=== PATIENT | male | born 1995 | race Caucasian/White ===

== ENCOUNTER 2017-11-16 13:51 | Inpatient (IN) | payer BC ==
[2017-11-16 15:48] VITALS: BMI 19.3
--- NOTE | 2017-11-16 17:45 | HP ---
COWS - Scale Resting Pulse: 4= ME > 121 Sweatin=Flushed/Facial Moisture Restless Observation: 3= Extraneous Movement Pupil Size: 1= Pupils >than Normal Bone or Joint Aches: 1= Mild Discomfort Runny Nose/ Eye Tearin= Runny Nose/Eyes GI Upset > 30mins: 2= Nausea/Diarrhea Tremor Observation: 2= Slight Tremor Visible Yawning Observation: 0= None Anxiety or Irritability: 2=Irritable/Anxious Goose Flesh Skin: 0=Smooth Skin COWS Score: 19 Admission [facility] Chief Complaint: withdrawal symptoms Allergies/Adverse Reactions: Allergies Allergy/AdvReac Type Severity Reaction Status Date / Time No Known Allergies Allergy Verified 11/16/17 15:42 History of Present Illness: 22 yo male with hx of heroin and oxycodone dependence x 3 years. Denies any past medical history. Denies any prior detox treatment. Denies suicidal / homicidal ideation. Exam Limitations: No Limitations - Ebola screening Have you traveled outside of the country in the last 21 days: No Have you had contact with anyone from an Ebola affected area: No Have you been sick,other than usual withdrawal symptoms: No Do you have a fever: No - Review of Systems Constitutional: Chills, Changes in sleep, Unintentional Wgt. Loss (loss 10 lbs in 2 months) EENT: reports: Nose Congestion, Throat Pain Respiratory: reports: Cough (x 4 days), Shortness of Breath (when snorting heroin gets SOB) Cardiac: reports: No Symptoms Reported GI: reports: Nausea, Poor Appetite, Poor Fluid Intake : reports: No Symptoms Reported (reports no urinary symptoms) Musculoskeletal: reports: Back Pain, Joint Pain Integumentary: reports: No Symptoms Reported Neuro: reports: Tremors Endocrine: reports: No Symptoms Reported Hematology: reports: No Symptoms Reported Psychiatric: reports: Orientated x3, Anxious Other Systems: Reviewed and Negative Patient History - Patient Medical History Hx Anemia: No Hx Asthma: No Hx Chronic Obstructive Pulmonary Disease (COPD): No Hx Cancer: No Hx Cardiac Disorders: No Hx Congestive Heart Failure: No Hx Hypertension: No Hx Hypercholesterolemia: No Hx Pacemaker: No HX Cerebrovascular Accident: No Hx Seizures: No Hx Dementia: No Hx Diabetes: No Hx Gastrointestinal Disorders: No Hx Liver Disease: No Hx Genitourinary Disorders: No Hx Sexually Transmitted Disorders: No Hx Renal Disease (ESRD): No Hx Thyroid Disease: No Hx Human Immunodeficiency Virus (HIV): No (last test two years ago ) Hx Hepatitis C: No Hx Depression: No Hx Suicide Attempt: No Hx Bipolar Disorder: No Hx Schizophrenia: No - Patient Surgical History Past Surgical History: No Hx Neurologic Surgery: No Hx Cataract Extraction: No Hx Cardiac Surgery: No Hx Lung Surgery: No Hx Breast Surgery: No Hx Breast Biopsy: No Hx Abdominal Surgery: No Hx Appendectomy: No Hx Cholecystectomy: No Hx Genitourinary Surgery: No Hx Section: No Hx Orthopedic Surgery: No Anesthesia Reaction: No - PPD History Previous Implant?: Yes Documented Results: Negative w/o proof Implanted On Prior [facility] Admission?: No PPD to be Administered?: Yes - Reproductive History Patient : No - Smoking Cessation Smoking history: Current every day smoker Have you smoked in the past 12 months: Yes Aproximately how many cigarettes per day: 10 Hx Chewing Tobacco Use: No Initiated information on smoking cessation: Yes 'Breaking Loose' booklet given: 11/16/17 - Substance & Tx. History Hx Alcohol Use: Yes (reports recreational use ) Hx Substance Use: Yes Substance Use Type: Heroin, Marijuana, Opiates Hx Substance Use Treatment: No - Substances Abused Heroin Route: Inhalation Frequency: Daily Amount used: 6 bags Age of first use: 19 Date of Last Use: 11/15/17 oxycodone Route: Oral Frequency: 1-2 times per week Amount used: 60mg Age of first use: 19 Date of Last Use: 11/11/17 Marijuana/Hashish Route: Smoking Frequency: 1-2 times per week Amount used: $10 Age of first use: 13 Date of Last Use: 11/12/17 Family Disease History - Family Disease History Family Disease History: Heart Disease: Father (alieve ), Other: Mother (alieve, Diverticulitis ) Admission Physical Exam BHS - Vital Signs Vital Signs: Vital Signs - 24 hr 11/16/17 11/16/17 15:28 15:58 Temperature 97.4 F L 97.4 F L Pulse Rate 135 H 135 H Respiratory 20 20 Rate Blood Pressure 132/81 132/81 - Physical General Appearance: Yes: Appropriately Dressed, Thin, Tremorous, Sweating, Anxious HEENTM: Yes: Hearing grossly Normal, Normal ENT Inspection, Normocephalic, Normal Voice, Pharynx Normal, Nasal Congestion, Other (dry mucous membranes) Respiratory: Yes: Chest Non-Tender, No Respiratory Distress, No Accessory Muscle Use, Wheezing (bilateral lower lobes) Neck: Yes: No masses,lesions,Nodules, Trachea in good position Breast: Yes: Breast Exam Deferred Cardiology: Yes: Regular Rhythm, S1, S2 Abdominal: Yes: Normal Bowel Sounds, Non Tender, Flat, Soft Genitourinary: Yes: Within Normal Limits (reports no urinary symptoms) Back: Yes: Within Normal Limits, Normal Inspection Musculoskeletal: Yes: full range of Motion, Gait Steady, Pelvis Stable Extremities: Yes: Normal Capillary Refill, Normal Inspection, Normal Range of Motion, Tremors 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 - Detox or Rehab [facility] Level of Care: Medically Managed Detox Regimen/Protocol: Methadone [facility] Breath Alcohol Content Breath Alcohol Content: 0 Urine Drug Screen - Results Drug Screen Negative: No Urine Drug Screen Results: PRECIOUS-Cocaine, OPI-Opiates
[2017-11-16] MEDS ORDERED: LOPERAMIDE HCL 2 MG CAPSULE PO PRN (18:04)
[2017-11-16] MEDS ORDERED: MAGNESIUM CITRATE 300 ML BOTTLE PO PRN (18:04)
[2017-11-16] MEDS ORDERED: IBUPROFEN 400 MG TABLET (FP) PO PRN (18:04)
[2017-11-16] MEDS ORDERED: ACETAMINOPHEN 325 MG TABLET (FP) PO PRN (18:04)
[2017-11-16] MEDS ORDERED: MENTHOL/PHENOL 1 EACH UD MM PRN (18:04)
[2017-11-16] MEDS ORDERED: P-EPHED 60MG/TRIPROLIDI 2.5MG TABLET PO PRN (18:04)
[2017-11-16] MEDS ORDERED: MAGNESIUM HYDROX 2400MG/30ML ORAL SUSPENSION 30 ML CUP PO PRN (18:04)
[2017-11-16] MEDS ORDERED: MAG HYDROX/AL HYDROX/SIMETH 30 ML UNIT-DOSE CUP PO PRN (18:04)
[2017-11-16] MEDS ORDERED: ALBUTEROL SO4 0.083% IH SOL 2.5 MG/3 ML VIAL.NEB. NEB PRN (18:09)
[2017-11-16] MEDS ORDERED: METHADONE HCL 10 MG TABLET (FOR DETOX USE ONLY) PO ONE ×2 (18:15→23:00)
[2017-11-16] MEDS: diazePAM 5 MG TABLET PO PRN ×2 (18:29→22:35)
[2017-11-16] MEDS: NICOTINE 14 MG/24 HOURS TOPICAL PATCH TD SCH (18:49)
[2017-11-16] MEDS: guaiFENesin/D-METHORPHAN HB 10 ML UNIT-DOSE CUPS PO PRN (20:26)
[2017-11-16] MEDS: THIAMINE HCL 100 MG TABLET (FP) PO SCH (22:12)
[2017-11-16 23:31] LABS: URINE APPEARANCE CLEAR; URINE BILIRUBIN NEGATIVE (NEGATIVE); URINE BLOOD NEGATIVE (NEGATIVE); URINE COLOR LTYELLOW; URINE GLUCOSE (UA) NEGATIVE (NEGATIVE); URINE KETONE 1+ (NEGATIVE); URINE LEUK ESTERASE NEGATIVE (NEGATIVE); URINE NITRITE NEGATIVE (NEGATIVE); URINE PROTEIN NEGATIVE (NEGATIVE); URINE UROBILINOGEN NEGATIVE mg/dL (0.2-1.0)
[2017-11-16] MEDS: hydrOXYzine PAMOATE 50 MG CAPSULE (FP) PO PRN (23:38)
[2017-11-17] MEDS: guaiFENesin/D-METHORPHAN HB 10 ML UNIT-DOSE CUPS PO PRN (05:18)
[2017-11-17] MEDS: diazePAM 5 MG TABLET PO PRN ×5 (05:18→23:18)
--- NOTE | 2017-11-17 09:36 | PN ---
BHS COWS - Scale Resting Pulse: 0= ME 80 or Below Sweatin= Chills/Flushing Restless Observation: 1= Difficult to Sit Still Pupil Size: 1= Pupils >than Normal Bone or Joint Aches: 2= Severe Diffuse Aches Runny Nose/ Eye Tearin= Runny Nose/Eyes GI Upset > 30mins: 2= Nausea/Diarrhea Tremor Observation of Outstretched Hands: 2= Slight Tremor Visible Yawning Observation: 2= >3x During Session Anxiety or Irritability: 2=Irritable/Anxious Goose Flesh Skin: 0=Smooth Skin COWS Score: 15 BHS Progress Note (SOAP) Subjective: sweat tremor GI upset restlessness agitation Objective: 11/17/17 09:34 Vital Signs Temperature 97.5 F L 11/17/17 06:11 Pulse Rate 78 11/17/17 06:11 Respiratory Rate 19 11/17/17 06:11 Blood Pressure 146/65 11/17/17 06:11 O2 Sat by Pulse Oximetry (%) Laboratory Last Values Urine Color Ltyellow 11/16/17 Unknown Urine Appearance Clear 11/16/17 Unknown Urine pH 9.0 (5.0-8.0) H 11/16/17 Unknown Ur Specific [place] 1.017 (1.001-1.035) 11/16/17 Unknown Urine Protein Negative (NEGATIVE) 11/16/17 Unknown Urine Glucose (UA) Negative (NEGATIVE) 11/16/17 Unknown Urine Ketones 1+ (NEGATIVE) H 11/16/17 Unknown Urine Blood Negative (NEGATIVE) 11/16/17 Unknown Urine Nitrite Negative (NEGATIVE) 11/16/17 Unknown Urine Bilirubin Negative (NEGATIVE) 11/16/17 Unknown Urine Urobilinogen Negative mg/dL (0.2-1.0) 11/16/17 Unknown Ur Leukocyte Esterase Negative (NEGATIVE) 11/16/17 Unknown lab noted cardiac arrhythemia Assessment: 11/17/17 09:35 withdrawal sx Plan: continue deto9x repeat ekg 11/18/17
[2017-11-17] MEDS ORDERED: METHADONE HCL 10 MG TABLET (FOR DETOX USE ONLY) PO ONE (10:00)
[2017-11-17 10:13] LABS: CHLORIDE 106 mmol/L (98-107); POTASSIUM 3.8 mmol/L (3.5-5.1); SODIUM 141 mmol/L (136-145)
[2017-11-17 10:24] LABS: HEMATOCRIT 40.8 % (35.4-49); HEMOGLOBIN 13.7 GM/dL (11.7-16.9); MCH 28.8 pg (25.7-33.7); MCHC 33.7 g/dl (32.0-35.9); MEAN CELL VOLUME 85.6 fl (80-96); MEAN PLT VOLUME 8.7 fl (7.5-11.1); PLATELET COUNT 324 K/MM3 (134-434); RBC 4.77 M/mm3 (4.00-5.60); RDW 12.4 % (11.9-15.9); WHITE BLOOD COUNT 7.3 K/mm3 (4.0-10.0)
[2017-11-17 10:31] LABS: ALBUMIN 3.4 g/dl (3.4-5.0); ALK PHOS 68 U/L (45-117); ANION GAP 9 (8-16); BILIRUBIN,TOTAL 0.8 mg/dL (0.2-1.0); BLOOD UREA NITROGEN 11 mg/dL (7-18); CALCIUM 8.6 mg/dL (8.5-10.1); CO2 26 mmol/L (21-32); CREATININE 0.8 mg/dL (0.7-1.3); GLUCOSE,RANDOM 84 mg/dL (74-106); SGOT/AST 11 U/L (15-37); SGPT/ALT 17 U/L (12-78); TOT PROT 6.1 g/dl (6.4-8.2)
[2017-11-17] MEDS: PRENATAL VITAMINS W/ FOLIC ACID TABLET (FP) PO SCH (10:32)
[2017-11-17] MEDS: NICOTINE 14 MG/24 HOURS TOPICAL PATCH TD SCH (10:32)
[2017-11-17] MEDS: NICOTINE POLACRILEX 2 MG GUM BUC PRN (11:06)
--- NOTE | 2017-11-17 11:10 | CONSULT ---
[facility] Psychiatric Consult - Data Date of interview: 11/17/17 Admission source: [facility] Identifying data: Pt. is a 22 year old male, single, without kids, and currently unemployed. This is patient's first admission to [facility]. Pt. admitted to for opiates, and marijuana dependence. Substance Abuse History: Following information confirmed with Mr. Escalante: - Smoking Cessation. Smoking history: Current every day smoker. Have you smoked in the past 12 months: Yes. Aproximately how many cigarettes per day: 10. Hx Chewing Tobacco Use: No. Initiated information on smoking cessation: Yes. ' Breaking Loose' booklet given: 11/16/17. - Substance & Tx. History. Hx Alcohol Use: Yes (reports recreational use ). Hx Substance Use: Yes. Substance Use Type: Heroin, Marijuana, Opiates. Hx Substance Use Treatment: No. - Substances Abused. Heroin. Route: Inhalation. Frequency: Daily. Amount used: 6 bags. Age of first use: 19. Date of Last Use: 11/15/17. oxycodone. Route: Oral. Frequency: 1-2 times per week. Amount used: 60mg. Age of first use: 19. Date of Last Use: 11/11/17. Marijuana/Hashish. Route : Smoking. Frequency: 1-2 times per week. Amount used: $10. Age of first use : 13. Date of Last Use: 11/12/17 Medical History: Denies. Psychiatric History: Pt. denies h/o psychiatric hospitalizations, OPC, and suicide attempts. As per pharmacy claims patient was given a prescription of wellbutrin on 11/25/2016. Pt. made aware and stated that it was prescribed by the physician that was prescribing him suboxone. Stated the wellbutrin was prescribed for smoking cessation but reports never filling the prescription. Pt. denies suicidal and homicidial ideation. Physical/Sexual Abuse/Trauma History: Denies. Mental Status Exam - Mental Status Exam Alert and Oriented to: Time, Place, Person Cognitive Function: Good Patient Appearance: Well Groomed Mood: Hopeful Affect: Appropriate Patient Behavior: Appropriate, Cooperative Speech Pattern: Clear, Appropriate Voice Loudness: Normal Thought Process: Goal Oriented Thought Disorder: Not Present Hallucinations: Denies Suicidal Ideation: Denies Homicidal Ideation: Denies Insight/Judgement: Poor Sleep: Poorly Appetite: Fair Muscle strength/Tone: Normal Gait/Station: Normal Psychiatric Findings - Problem List ([place] 1, 2,3) (1) Opioid dependence with withdrawal Current Visit: Yes Status: Acute (2) Nicotine dependence Current Visit: Yes Status: Chronic (3) Insomnia Current Visit: Yes Status: Acute - Initial Treatment Plan Initial Treatment Plan: Psychoeducation provided. Detoxification in progress. Ambien 10mg qhs ordered. Benefits and side effects (sleep walking) discussed. Verbal consent given. Will continue to monitor patient.
[2017-11-17] MEDS ORDERED: FLU VACCINE QUAD 60 MCG/0.5 ML (MDV 17-18) IM ONE (12:00)
--- NOTE | 2017-11-17 12:29 | EKG ---
Test Reason : Blood Pressure : / mmHG Vent. Rate : 075 BPM Atrial Rate : 075 BPM P-R Int : 128 ms QRS Dur : 098 ms QT Int : 402 ms P-R-T Axes : 077 082 066 degrees QTc Int : 448 ms NORMAL SINUS RHYTHM WITH SINUS ARRHYTHMIA POSSIBLE LEFT ATRIAL ENLARGEMENT LEFT VENTRICULAR HYPERTROPHY EARLY REPOLARIZATION ABNORMAL ECG WHEN COMPARED WITH ECG OF 16-NOV-2017 18:25, NO SIGNIFICANT CHANGE WAS FOUND Confirmed by MD Charlee, Gaurav ([id number]) on 11/17/2017 12:29:47 PM Referred By: Confirmed By:Gaurav Deshpande MD
[2017-11-17] MEDS: hydrOXYzine PAMOATE 50 MG CAPSULE (FP) PO PRN (13:20)
--- NOTE | 2017-11-17 14:09 | EKG ---
Test Reason : Blood Pressure : / mmHG Vent. Rate : 091 BPM Atrial Rate : 091 BPM P-R Int : 114 ms QRS Dur : 098 ms QT Int : 356 ms P-R-T Axes : 074 073 049 degrees QTc Int : 437 ms NORMAL SINUS RHYTHM WITH SINUS ARRHYTHMIA RIGHT ATRIAL ENLARGEMENT BORDERLINE ECG NO PREVIOUS ECGS AVAILABLE Confirmed by MD Charlee, Gaurav ([id number]) on 11/17/2017 2:09:28 PM Referred By: Confirmed By:Gaurav Deshpande MD
[2017-11-17] MEDS ORDERED: ZOLPIDEM TARTRATE 10 MG TABLET (PARK CARE ONLY) PO PRN (22:00)
[2017-11-17] MEDS: THIAMINE HCL 100 MG TABLET (FP) PO SCH (22:16)
[2017-11-18] MEDS: diazePAM 5 MG TABLET PO PRN ×5 (03:24→19:55)
--- NOTE | 2017-11-18 09:16 | PN ---
Psychiatric Progress Note Vital Signs: Vital Signs Period Temp Pulse Resp BP Sys/Persaud Pulse Ox Last 24 Hr 97.5 F-98 F 63-100 16-19 110-143/56-82 Date of Session: 11/18/17 Chief Complaint:: Insomnia HPI: Patient reports severe insomnia, Ambien is not helpful, reports good response on Serouel 100mg po qhs in the past Current Medications: Active Medications Generic Name Dose Route Start Last Admin Trade Name Freq PRN Reason Stop Dose Admin Acetaminophen 650 mg 11/16/17 18:04 11/16/17 18:31 Tylenol - PO 650 mg Q4H PRN Administration FEVER Al Hydroxide/Mg Hydroxide 30 ml 11/16/17 18:04 Mylanta Oral Suspension - PO Q6H PRN DYSPEPSIA Albuterol Sulfate 1 amp 11/16/17 18:09 Ventolin 0.083% Nebulizer Soln - NEB Q6H PRN SHORT OF BREATH/WHEEZING Diazepam 10 mg 11/16/17 18:04 11/18/17 07:41 Valium - PO 11/19/17 18:03 10 mg Q4H PRN Administration WITHDRAWAL(CONT SUBST) Eucalyptus/Menthol/Phenol/Sorbitol 1 each 11/16/17 18:04 Cepastat Lozenge - MM Q4H PRN SORE THROAT Guaifenesin 10 ml 11/16/17 18:04 11/17/17 05:18 Robitussin Dm - PO 10 ml Q6H PRN Administration COUGH Hydroxyzine Pamoate 50 mg 11/16/17 18:04 11/17/17 13:20 Vistaril - PO 50 mg Q4H PRN Administration AGITATION Ibuprofen 400 mg 11/16/17 18:04 Motrin - PO Q6H PRN PAIN LEVEL 4-6 Loperamide HCl 4 mg 11/16/17 18:04 Imodium - PO Q6H PRN DIARRHEA Magnesium Citrate 300 ml 11/16/17 18:04 Citroma - PO Q48H PRN CONSTIPATION Magnesium Hydroxide 30 ml 11/16/17 18:04 Milk Of Magnesia - PO DAILY PRN CONSTIPATION Methadone HCl 15 mg 11/18/17 10:00 Dolophine - PO 11/18/17 10:01 ONCE ONE Methadone HCl 5 mg 11/21/17 06:00 Dolophine - PO 11/21/17 06:01 ONCE@0600 ONE Methadone HCl 15 mg 11/19/17 10:00 Dolophine - PO 11/19/17 10:01 ONCE ONE Methadone HCl 10 mg 11/20/17 10:00 Dolophine - PO 11/20/17 10:01 ONCE ONE Nicotine 14 mg 11/16/17 18:15 11/17/17 10:32 Nicoderm Patch - TD Not Given DAILY LESLIE Nicotine Polacrilex 2 mg 11/16/17 18:04 11/17/17 11:06 Nicorette Gum - BUC 2 mg Q2H PRN Administration NICOTINE REPLACEMENT RX Multivit/Folic Acid/Iron 1 tab 11/17/17 10:00 11/17/17 10:32 Vitamins ([facility]) - PO 1 tab DAILY LESLIE Administration Pseudoephedrine/Triprolidine 1 combo 11/16/17 18:04 Actifed - PO TID PRN NASAL CONGESTION Quetiapine Fumarate 100 mg 11/18/17 22:00 Seroquel - PO HS LESLIE Thiamine HCl 100 mg 11/16/17 22:00 11/17/17 22:16 Vitamin B1 - PO 100 mg HS LESLIE Administration Medication(s) Change(s): Serouel 100mg po qhs. D/C ambien 10mg po qhs Mental Status Exam - Mental Status Exam Alert and Oriented to: Person Cognitive Function: Fair Patient Appearance: Unkempt Mood: Anxious Affect: Mood Congruent Patient Behavior: Cooperative Speech Pattern: Appropriate Voice Loudness: Normal Thought Process: Goal Oriented Thought Disorder: Being Controlled Hallucinations: Denies Suicidal Ideation: Denies Homicidal Ideation: Denies Insight/Judgement: Fair Sleep: Difficulty falling asleep Appetite: Weight loss Muscle strength/Tone: Normal Gait/Station: Normal Additional Comments: Serouel 100mg po qhs Psychiatric Treatment Plan - Problem List (1) Drug-induced mood disorder Current Visit: Yes (2) Opioid dependence with withdrawal Current Visit: Yes (3) Nicotine dependence Current Visit: Yes Initial treatment plan: Serouel 100mg po qhs
--- NOTE | 2017-11-18 09:57 | PN ---
BHS COWS - Scale Resting Pulse: 1= [place] 81-100 Sweatin= Chills/Flushing Restless Observation: 3= Extraneous Movement Pupil Size: 1= Pupils >than Normal Bone or Joint Aches: 2= Severe Diffuse Aches Runny Nose/ Eye Tearin= Runny Nose/Eyes GI Upset > 30mins: 2= Nausea/Diarrhea Tremor Observation of Outstretched Hands: 2= Slight Tremor Visible Yawning Observation: 1= 1-2x During Session Anxiety or Irritability: 2=Irritable/Anxious Goose Flesh Skin: 0=Smooth Skin COWS Score: 17 S Progress Note (SOAP) Subjective: ALERT,IRRITABLE,ANXIOUS,INTERRUPTED SLEEP,TREMOR,PAIN IN THE BODY AND BACK Objective: 11/18/17 09:54 Vital Signs Temperature 97.5 F L 11/18/17 06:07 Pulse Rate 84 11/18/17 06:07 Respiratory Rate 19 11/18/17 06:07 Blood Pressure 112/56 11/18/17 06:07 O2 Sat by Pulse Oximetry (%) 11/18/17 09:55 Laboratory Last Values WBC 7.3 K/mm3 (4.0-10.0) 11/17/17 07:00 RBC 4.77 M/mm3 (4.00-5.60) 11/17/17 07:00 Hgb 13.7 GM/dL (11.7-16.9) 11/17/17 07:00 Hct 40.8 % (35.4-49) 11/17/17 07:00 MCV 85.6 fl (80-96) 11/17/17 07:00 MCH 28.8 pg (25.7-33.7) 11/17/17 07:00 MCHC 33.7 g/dl (32.0-35.9) 11/17/17 07:00 RDW 12.4 % (11.9-15.9) 11/17/17 07:00 Plt Count 324 K/MM3 (134-434) 11/17/17 07:00 MPV 8.7 fl (7.5-11.1) 11/17/17 07:00 Sodium 141 mmol/L (136-145) 11/17/17 07:00 Potassium 3.8 mmol/L (3.5-5.1) 11/17/17 07:00 Chloride 106 mmol/L (98-107) 11/17/17 07:00 Carbon Dioxide 26 mmol/L (21-32) 11/17/17 07:00 Anion Gap 9 (8-16) 11/17/17 07:00 BUN 11 mg/dL (7-18) 11/17/17 07:00 Creatinine 0.8 mg/dL (0.7-1.3) 11/17/17 07:00 Creat Clearance w eGFR > 60 (>60) 11/17/17 07:00 Random Glucose 84 mg/dL (74-106) 11/17/17 07:00 Calcium 8.6 mg/dL (8.5-10.1) 11/17/17 07:00 Total Bilirubin 0.8 mg/dL (0.2-1.0) 11/17/17 07:00 AST 11 U/L (15-37) L 11/17/17 07:00 ALT 17 U/L (12-78) 11/17/17 07:00 Alkaline Phosphatase 68 U/L (45-117) 11/17/17 07:00 Total Protein 6.1 g/dl (6.4-8.2) L 11/17/17 07:00 Albumin 3.4 g/dl (3.4-5.0) 11/17/17 07:00 Urine Color Ltyellow 11/16/17 Unknown Urine Appearance Clear 11/16/17 Unknown Urine pH 9.0 (5.0-8.0) H 11/16/17 Unknown Ur Specific [place] 1.017 (1.001-1.035) 11/16/17 Unknown Urine Protein Negative (NEGATIVE) 11/16/17 Unknown Urine Glucose (UA) Negative (NEGATIVE) 11/16/17 Unknown Urine Ketones 1+ (NEGATIVE) H 11/16/17 Unknown Urine Blood Negative (NEGATIVE) 11/16/17 Unknown Urine Nitrite Negative (NEGATIVE) 11/16/17 Unknown Urine Bilirubin Negative (NEGATIVE) 11/16/17 Unknown Urine Urobilinogen Negative mg/dL (0.2-1.0) 11/16/17 Unknown Ur Leukocyte Esterase Negative (NEGATIVE) 11/16/17 Unknown RPR Titer Nonreactive (NONREACTIVE) 11/17/17 07:00 Assessment: 11/18/17 09:56 WITHDRAWAL SYMPTOM Plan: CONTINUE DETOX,PSYCHIATRIC REEVALUATION FOR INSOMNIA
[2017-11-18] MEDS ORDERED: METHADONE HCL 5 MG TABLET (FOR DETOX USE ONLY) PO ONE (10:00)
[2017-11-18] MEDS: NICOTINE 14 MG/24 HOURS TOPICAL PATCH TD SCH (10:08)
[2017-11-18] MEDS: hydrOXYzine PAMOATE 50 MG CAPSULE (FP) PO PRN ×2 (10:08→18:24)
[2017-11-18] MEDS: PRENATAL VITAMINS W/ FOLIC ACID TABLET (FP) PO SCH (10:08)
[2017-11-18] MEDS: NICOTINE POLACRILEX 2 MG GUM BUC PRN (12:27)
[2017-11-18] MEDS: THIAMINE HCL 100 MG TABLET (FP) PO SCH (22:04)
[2017-11-18] MEDS: QUEtiapine FUMARATE 100 MG TABLET (FP) PO SCH (22:04)
[2017-11-19] MEDS: diazePAM 5 MG TABLET PO PRN ×4 (00:26→14:03)
--- NOTE | 2017-11-19 09:58 | PN ---
S Progress Note (SOAP) Subjective: ALERT,IRRITABLE,ANXIOUS,INTERRUPTED SLEEP,PAIN IN THE BODY AND BACK Objective: 11/19/17 09:57 Vital Signs Temperature 97.5 F L 11/19/17 06:00 Pulse Rate 70 11/19/17 06:00 Respiratory Rate 18 11/19/17 06:00 Blood Pressure 106/56 11/19/17 06:00 O2 Sat by Pulse Oximetry (%) Assessment: 11/19/17 09:57 WITHDRAWAL SYMPTOM Plan: CONTINUE DETOX
[2017-11-19] MEDS ORDERED: METHADONE HCL 5 MG TABLET (FOR DETOX USE ONLY) PO ONE (10:00)
[2017-11-19] MEDS: PRENATAL VITAMINS W/ FOLIC ACID TABLET (FP) PO SCH (10:09)
[2017-11-19] MEDS: hydrOXYzine PAMOATE 50 MG CAPSULE (FP) PO PRN ×3 (10:09→19:35)
[2017-11-19] MEDS: NICOTINE 14 MG/24 HOURS TOPICAL PATCH TD SCH (10:09)
--- NOTE | 2017-11-19 11:07 | EKG ---
Test Reason : Blood Pressure : / mmHG Vent. Rate : 078 BPM Atrial Rate : 078 BPM P-R Int : 116 ms QRS Dur : 088 ms QT Int : 374 ms P-R-T Axes : 050 068 043 degrees QTc Int : 426 ms NORMAL SINUS RHYTHM MINIMAL VOLTAGE CRITERIA FOR LVH, MAY BE NORMAL VARIANT BORDERLINE ECG WHEN COMPARED WITH ECG OF 17-NOV-2017 05:59, NO SIGNIFICANT CHANGE WAS FOUND Confirmed by CHEYENNE MCMULLEN, FLORI ([id number]) on 11/19/2017 11:06:49 AM Referred By: Confirmed By:FLORI QUINN MD
[2017-11-19] MEDS: NICOTINE POLACRILEX 2 MG GUM BUC PRN (14:33)
[2017-11-19] MEDS: GABAPENTIN 300 MG CAPSULE (FP) PO SCH ×2 (15:33→22:04)
[2017-11-19] MEDS: QUEtiapine FUMARATE 100 MG TABLET (FP) PO SCH (22:04)
[2017-11-19] MEDS: THIAMINE HCL 100 MG TABLET (FP) PO SCH (22:04)
[2017-11-20] MEDS: GABAPENTIN 300 MG CAPSULE (FP) PO SCH ×3 (05:26→22:12)
[2017-11-20] MEDS: hydrOXYzine PAMOATE 50 MG CAPSULE (FP) PO PRN ×5 (05:27→23:17)
[2017-11-20] MEDS ORDERED: METHADONE HCL 10 MG TABLET (FOR DETOX USE ONLY) PO ONE (10:00)
[2017-11-20] MEDS: PRENATAL VITAMINS W/ FOLIC ACID TABLET (FP) PO SCH (10:10)
[2017-11-20] MEDS: NICOTINE 14 MG/24 HOURS TOPICAL PATCH TD SCH (10:11)
--- NOTE | 2017-11-20 11:54 | PN ---
S Progress Note (SOAP) Subjective: ALERT,IRRITABLE,ANXIOUS,INTERRUPTED SLEEP, Objective: 11/20/17 11:53 Vital Signs Temperature 96.1 F L 11/20/17 09:51 Pulse Rate 87 11/20/17 09:51 Respiratory Rate 16 11/20/17 09:51 Blood Pressure 119/67 11/20/17 09:51 O2 Sat by Pulse Oximetry (%) Assessment: 11/20/17 11:53 WITHDRAWAL SYMPTOM Plan: CONTINUE DETOX,DISCHARGE IN AM
[2017-11-20] MEDS: NICOTINE POLACRILEX 2 MG GUM BUC PRN ×2 (12:12→18:20)
[2017-11-20] MEDS: THIAMINE HCL 100 MG TABLET (FP) PO SCH (22:12)
[2017-11-20] MEDS: QUEtiapine FUMARATE 100 MG TABLET (FP) PO SCH (22:12)
[2017-11-21] MEDS: GABAPENTIN 300 MG CAPSULE (FP) PO SCH (05:48)
[2017-11-21] MEDS ORDERED: METHADONE HCL 5 MG TABLET (FOR DETOX USE ONLY) PO ONE (06:00)
[2017-11-21 06:16] VITALS: BP 115/52; PULSE 76; TEMP 97.2
--- NOTE | 2017-11-21 08:48 | DS ---
[facility] Detox Discharge Summary Admission Date: 11/16/17 Discharge Date: 11/21/17 - History Present History: Opioid Dependence Additional Comments: FOLLOW UP WITH AFTER CARE PROGRAM ARRANGEMENT Pertinent Past History: NICOTINE DEPENDENCE ASTHMA - Physical Exam Results Vital Signs: Vital Signs Temperature 97.2 F L 11/21/17 06:15 Pulse Rate 76 11/21/17 06:15 Respiratory Rate 18 11/21/17 06:15 Blood Pressure 115/52 11/21/17 06:15 O2 Sat by Pulse Oximetry (%) Pertinent Admission Physical Exam Findings: WITHDRAWAL SYMPTOM AND FINDING - Treatment Hospital Course: Detox Protocol Followed, Detoxed Safely, Responded well, Discharged Condition Good Patient has Accepted a Rehab Referral to: DECLINED - Medication Discharge Medications: Ambulatory Orders Quetiapine Fumarate [Seroquel] 100 mg PO HS #30 tablet 11/18/17 Gabapentin 300 mg PO TID #90 ml 11/19/17 - Diagnosis (1) Insomnia Current Visit: Yes Status: Acute (2) Opioid dependence with withdrawal Current Visit: Yes Status: Acute (3) Nicotine dependence Current Visit: Yes Status: Chronic (4) Asthma Current Visit: Yes Status: Acute - AMA Did Patient Leave Against Medical Advice: No
== END 2017-11-21 09:12 | disposition home or self-care (01) | DRG 897 ==
LOC: YASAS 13:51 → Y6N 17:54
PROVIDERS: ADMIT Internal Medicine; ATTEND Internal Medicine
PROC: HZ2ZZZZ Detoxification Services for Substance Abuse Treatment (ICD-10-PCS; principal; 2017-11-16)
DX: F11.23 Opioid dependence with withdrawal (principal); F17.210 Nicotine dependence, cigarettes, uncomplicated; G47.00 Insomnia, unspecified; J45.909 Unspecified asthma, uncomplicated; R06.2 Wheezing
CPT/HCPCS: 36415; 80053; 81003; 85027; 86593; 93005; 93010

== ENCOUNTER 2017-12-22 10:42 | Emergency (ER) | payer BC ==
[2017-12-22] MEDS ORDERED: ALBUTEROL SO4 18 GM HFA INHALER IH ONE (11:04)
[2017-12-22 11:11] VITALS: BP 106/78; PULSE 109; TEMP 97.8; BMI 19.3
--- NOTE | 2017-12-22 11:25 | PDOC ---
History of Present Illness - General Chief Complaint: Asthma Stated Complaint: ASTHMA Time Seen by Provider: 12/22/17 10:58 History Source: Patient Exam Limitations: No Limitations - History of Present Illness Initial Comments: 12/22/17 11:08 22-year-old male with history of childhood asthma presents to the ED for evaluation of an episode of wheezing coughing and shortness of breath earlier today. Patient states he walks a history of proximal program and within minutes of entering the building he started to have a coughing episode followed by wheezing and shortness of breath. Patient states the Sub[facility] nurse was not present and staff stated patient needed to go to the ER for evaluation. Patient states symptoms resolved by the time EMS arrived without intervention patient states has had asthma attacks last one being one month ago which resolved with his albuterol inhaler but ran out of his albuterol inhaler and does not have the money to buy it at [facility]. Patient denies fever, chills, chest pain, weakness, dizziness or difficulty breathing presently. Patient denies smoking history and denies recent illness. Patient denies hospitalizations or intubations secondary to asthma exacerbations. Timing/Duration: reports: gone now Severity: reports: mild Possible Cause: Yes: occasional episodes Modifying Factors: improves with: albuterol inhaler Associated Symptoms: reports: cough, shortness of breath, wheezing Past History - Travel Traveled outside of the country in the last 30 days: No Close contact w/someone who was outside of country & ill: No - Past Medical History Allergies/Adverse Reactions: Allergies Allergy/AdvReac Type Severity Reaction Status Date / Time No Known Allergies Allergy Verified 11/16/17 15:42 Home Medications: Ambulatory Orders Quetiapine Fumarate [Seroquel] 100 mg PO HS #30 tablet 11/18/17 Albuterol Sulfate Inhaler - [Ventolin Hfa Inhaler -] 2 inh PO Q4H PRN 12/22/17 Buprenorphine HCl/Naloxone HCl [Suboxone 4 mg-1 mg Sl Film] 1 each SL BID #16 film MDD 2 12/22/17 Anemia: No Asthma: Yes Cancer: No Cardiac Disorders: No CVA: No COPD: No CHF: No Dementia: No Diabetes: No GI Disorders: No Disorders: No HTN: No Hypercholesterolemia: No Kidney Stones: No Liver Disease: No Seizures: No Thyroid Disease: No Other medical history: heroin abuse. - Surgical History Abdominal Surgery: No Appendectomy: No Cardiac Surgery: No Cholecystectomy: No Lung Surgery: No Neurologic Surgery: No Orthopedic Surgery: No - Reproductive History Testicular Surgery: No - Suicide/Smoking/Psychosocial Hx Smoking History: Current every day smoker Have you smoked in the past 12 months: Yes Number of Cigarettes Smoked Daily: 10 Information on smoking cessation initiated: No 'Breaking Loose' booklet given: 11/24/17 Hx Alcohol Use: Yes (occcasional) Drug/Substance Use Hx: No (heroin) Substance Use Type: Heroin Hx Substance Use Treatment: Yes (detox, suboxone) Patient Lives Alone: No Lives with/in: parents Respiratory Specific PMHX - Complaint Specific PMHX TB (Tuberculosis): No Review of Systems - Review of Systems Able to Perform ROS?: Yes Constitutional: No: Symptoms Reported HEENTM: No: Symptoms Reported Respiratory: Yes: Cough, Shortness of Breath, Wheezing Cardiac (ROS): No: Symptoms Reported ABD/GI: No: Symptoms Reported Musculoskeletal: No: Symptoms Reported Integumentary: No: Symptoms Reported Neurological: No: Symptoms reported Hematologic/Lymphatic: No: Symptoms Reported *Physical Exam - Vital Signs Last Vital Signs Temp Pulse Resp BP Pulse Ox 97.8 F 109 H 18 106/78 100 12/22/17 10:42 12/22/17 10:42 12/22/17 10:42 12/22/17 10:42 12/22/17 10:42 - Physical Exam General Appearance: Yes: Nourished, Appropriately Dressed. No: Apparent Distress HEENT: positive: Pharynx Normal Neck: positive: Supple. negative: Lymphadenopathy (R), Lymphadenopathy (L) Respiratory/Chest: positive: Lungs Clear, Normal Breath Sounds. negative: Respiratory Distress, Accessory Muscle Use, Rapid RR, Decreased Breath Sounds, Wheezing Cardiovascular: positive: Regular Rhythm, Regular Rate (96 on pulse oximetry). negative: Murmur Extremity: positive: Normal Capillary Refill Integumentary: positive: Normal Color, Warm, Moist Neurologic: positive: Normal Mood/Affect (slightly anxious), Motor Strength 5/5 Medical Decision Making - Medical Decision Making 12/22/17 11:23 Patient here for evaluation of resolved wheezing coughing and shortness of breath approximately an hour prior to arrival. Patient states that ran of his albuterol inhaler last month and did not have his rescue inhaler for his symptoms and so was sent by staff at the [facility] program to be cleared prior to receiving the remainder of his Suboxone medication for this week. Patient states is not have the funds to purchase a new inhaler that is available at [facility]. Patient with normal vital signs and is currently asymptomatic. Patient ordered for albuterol inhaler here in the emergency room so that he may be discharged home in the event of recurrent symptoms. *DC/Admit/Observation/Transfer Diagnosis at time of Disposition: Wheezing - Discharge Dispostion Disposition: HOME Condition at time of disposition: Good - Referrals - Patient Instructions Printed Discharge Instructions: Asthma -- Adult Additional Instructions: Please carry on person at all times your rescue inhaler for wheezing coughing or difficulty breathing. If symptoms do not resolve after using the medication please go to the nearest ER. Also cover your nose and mouth when going in cold air to prevent bronchospasm - Post Discharge Activity
== END 2017-12-22 11:34 | disposition home or self-care (01) ==
LOC: JER 10:42
PROC: 3E0F7GC Introduction of Other Therapeutic Substance into Respiratory Tract, Via Natural or Artificial Opening (ICD-10-PCS; principal; 2017-12-22)
DX: J45.909 Unspecified asthma, uncomplicated (principal); F17.210 Nicotine dependence, cigarettes, uncomplicated
CPT/HCPCS: 99281-25

== ENCOUNTER 2020-11-29 08:51 | Inpatient (IN) | payer BC, OTHER ==
[2020-11-29] MEDS ORDERED: METHOCARBAMOL 500 MG TABLET PO PRN (09:53)
[2020-11-29] MEDS ORDERED: ACETAMINOPHEN 325 MG TABLET (FP) PO PRN ×2 (09:53)
[2020-11-29] MEDS ORDERED: IBUPROFEN 400 MG TABLET (FP) PO PRN (09:53)
[2020-11-29] MEDS ORDERED: MAGNESIUM HYDROX 2400MG/30ML ORAL SUSPENSION 30 ML CUP PO PRN (09:53)
[2020-11-29] MEDS ORDERED: METHADONE HCL 10 MG TABLET (FOR DETOX USE ONLY) PO ONE (09:53)
[2020-11-29] MEDS ORDERED: ONDANSETRON *ODT* 4 MG TABLET SL PRN (09:53)
[2020-11-29] MEDS ORDERED: NICOTINE POLACRILEX 2 MG GUM BUC PRN (09:53)
[2020-11-29] MEDS ORDERED: MAG HYDROX/AL HYDROX/SIMETH 30 ML UNIT-DOSE CUP PO PRN (09:53)
[2020-11-29] MEDS ORDERED: MAGNESIUM CITRATE 300 ML BOTTLE PO PRN (09:53)
[2020-11-29] MEDS ORDERED: MENTHOL/PHENOL 1 EACH UD MM PRN (09:53)
[2020-11-29] MEDS ORDERED: chlordiazePOXIDE HCL 25 MG CAPSULE PO PRN (10:02)
[2020-11-29 10:08] VITALS: BMI 22.2
[2020-11-29] MEDS: chlordiazePOXIDE HCL 25 MG CAPSULE PO SCH ×3 (10:48→22:27)
[2020-11-29] MEDS: hydrOXYzine PAMOATE 25 MG CAPSULE (FP) PO SCH ×4 (10:51→22:27)
[2020-11-29] MEDS: NICOTINE 14 MG/24 HOURS TOPICAL PATCH TD SCH (10:51)
[2020-11-29] MEDS: PRENATAL VITAMINS W/ FOLIC ACID TABLET (FP) PO SCH (10:51)
[2020-11-29] MEDS: BISMUTH SUBSALICYLATE 262 MG/15 ML BTL PO PRN (12:14)
[2020-11-29 14:12] LABS: POTASSIUM 4.3 mmol/L (3.5-5.1)
[2020-11-29 14:15] LABS: CALCIUM 10.4 mg/dL (8.5-10.1); HEMATOCRIT 47.6 % (35.4-49); HEMOGLOBIN 15.7 GM/dL (11.7-16.9); MCH 27.5 pg (25.7-33.7); MEAN CELL VOLUME 83.3 fl (80-96); MEAN PLT VOLUME 9.6 fl (7.5-11.1); PLATELET COUNT 405 K/MM3 (134-434); RBC 5.72 M/mm3 (4.00-5.60); RDW 14.4 % (11.9-15.9); WHITE BLOOD COUNT 10.4 K/mm3 (4.0-10.0)
[2020-11-29 14:16] LABS: ALBUMIN 4.8 g/dl (3.4-5.0); BLOOD UREA NITROGEN 12.4 mg/dL (7-18)
[2020-11-29 14:19] LABS: CREATININE 1.1 mg/dL (0.55-1.3)
[2020-11-29 14:21] LABS: BILIRUBIN,TOTAL 1.4 mg/dL (0.2-1); TOT PROT 8.2 g/dl (6.4-8.2)
[2020-11-29] MEDS: ALBUTEROL SO4 HFA INHALER IH PRN ×2 (17:04→22:29)
[2020-11-29] MEDS: THIAMINE HCL 100 MG TABLET (FP) PO SCH (22:27)
[2020-11-29] MEDS: MELATONIN 5 MG TABLETS PO SCH (22:27)
[2020-11-29] MEDS: SUVOREXANT 10 MG TABLET PO PRN (22:28)
[2020-11-30] MEDS: chlordiazePOXIDE HCL 25 MG CAPSULE PO SCH (06:26)
[2020-11-30] MEDS: hydrOXYzine PAMOATE 25 MG CAPSULE (FP) PO SCH ×5 (06:26→22:33)
[2020-11-30] MEDS: ALBUTEROL SO4 HFA INHALER IH PRN (06:27)
[2020-11-30] MEDS ORDERED: METHADONE HCL 5 MG TABLET (FOR DETOX USE ONLY) ONE (09:16)
[2020-11-30] MEDS ORDERED: METHADONE HCL 10 MG TABLET (FOR DETOX USE ONLY) ONE (09:17)
[2020-11-30] MEDS ORDERED: METHADONE (DETOX) 20 MG, METHADONE (DETOX) 5 MG PO ONE (10:00)
[2020-11-30] MEDS: NICOTINE 14 MG/24 HOURS TOPICAL PATCH TD SCH (10:50)
[2020-11-30] MEDS: PRENATAL VITAMINS W/ FOLIC ACID TABLET (FP) PO SCH (10:54)
[2020-11-30] MEDS: cloNIDine HCL 0.1 MG TABLET PO PRN (10:54)
[2020-11-30] MEDS: diazePAM 5 MG TABLET PO SCH ×3 (11:59→22:31)
[2020-11-30] MEDS: diazePAM 5 MG TABLET PO PRN (15:44)
[2020-11-30 18:00] LABS: BASO % 0.5 % (0-2.0); EOS % 2.3 % (0-4.5); HEMATOCRIT 38.8 % (35.4-49); HEMOGLOBIN 13.1 GM/dL (11.7-16.9); LYMPH % 37.5 % (8-40); MCH 27.6 pg (25.7-33.7); MCHC 33.7 g/dl (32.0-35.9); MEAN PLT VOLUME 9.3 fl (7.5-11.1); MONO % 11.4 % (3.8-10.2); NEUT % 48.3 % (42.8-82.8); PLATELET COUNT 294 K/MM3 (134-434); RBC 4.73 M/mm3 (4.00-5.60); WHITE BLOOD COUNT 7.1 K/mm3 (4.0-10.0)
[2020-11-30] MEDS: SUVOREXANT 10 MG TABLET PO PRN (22:29)
[2020-11-30] MEDS: THIAMINE HCL 100 MG TABLET (FP) PO SCH (22:30)
[2020-11-30] MEDS: MELATONIN 5 MG TABLETS PO SCH (22:34)
[2020-12-01] MEDS: diazePAM 5 MG TABLET PO PRN ×2 (01:35→13:14)
[2020-12-01] MEDS ORDERED: chlordiazePOXIDE HCL 25 MG CAPSULE PO SCH (05:00)
[2020-12-01] MEDS: diazePAM 5 MG TABLET PO SCH ×4 (05:19→22:38)
[2020-12-01] MEDS: hydrOXYzine PAMOATE 25 MG CAPSULE (FP) PO SCH ×5 (05:19→22:37)
[2020-12-01] MEDS: BISMUTH SUBSALICYLATE 262 MG/15 ML BTL PO PRN (06:44)
[2020-12-01] MEDS ORDERED: METHADONE HCL 10 MG TABLET (FOR DETOX USE ONLY) PO ONE (10:00)
[2020-12-01] MEDS: PRENATAL VITAMINS W/ FOLIC ACID TABLET (FP) PO SCH (10:07)
[2020-12-01] MEDS: NICOTINE 14 MG/24 HOURS TOPICAL PATCH TD SCH (10:07)
[2020-12-01] MEDS: cloNIDine HCL 0.1 MG TABLET PO PRN ×2 (12:18→19:37)
[2020-12-01] MEDS: SUVOREXANT 10 MG TABLET PO PRN (22:37)
[2020-12-01] MEDS: THIAMINE HCL 100 MG TABLET (FP) PO SCH (22:37)
[2020-12-01] MEDS: MELATONIN 5 MG TABLETS PO SCH (22:39)
[2020-12-02] MEDS ORDERED: chlordiazePOXIDE HCL 10 MG CAPSULE PO PRN
[2020-12-02] MEDS: diazePAM 5 MG TABLET PO PRN ×3 (02:50→16:52)
[2020-12-02] MEDS ORDERED: chlordiazePOXIDE HCL 10 MG CAPSULE PO SCH (05:00)
[2020-12-02] MEDS: hydrOXYzine PAMOATE 25 MG CAPSULE (FP) PO SCH ×5 (05:23→22:18)
[2020-12-02] MEDS: diazePAM 5 MG TABLET PO SCH ×3 (05:24→22:18)
[2020-12-02] MEDS ORDERED: METHADONE HCL 5 MG TABLET (FOR DETOX USE ONLY) ONE (09:23)
[2020-12-02] MEDS ORDERED: METHADONE HCL 10 MG TABLET (FOR DETOX USE ONLY) ONE (09:23)
[2020-12-02] MEDS ORDERED: METHADONE (DETOX) 10 MG, METHADONE (DETOX) 5 MG PO ONE (10:00)
[2020-12-02] MEDS: PRENATAL VITAMINS W/ FOLIC ACID TABLET (FP) PO SCH (10:31)
[2020-12-02] MEDS: NICOTINE 14 MG/24 HOURS TOPICAL PATCH TD SCH (10:32)
[2020-12-02 17:37] VITALS: TEMP 97.8
[2020-12-02] MEDS: BISMUTH SUBSALICYLATE 262 MG/15 ML BTL PO PRN (19:19)
[2020-12-02] MEDS: ALBUTEROL SO4 HFA INHALER IH PRN (19:19)
[2020-12-02] MEDS: THIAMINE HCL 100 MG TABLET (FP) PO SCH (22:18)
[2020-12-02] MEDS: MELATONIN 5 MG TABLETS PO SCH (22:19)
[2020-12-03] MEDS: diazePAM 5 MG TABLET PO PRN (01:27)
[2020-12-03] MEDS: ALBUTEROL SO4 HFA INHALER IH PRN (02:28)
[2020-12-03] MEDS ORDERED: chlordiazePOXIDE HCL 10 MG CAPSULE PO SCH (05:00)
[2020-12-03] MEDS ORDERED: diazePAM 5 MG TABLET PO SCH (06:00)
[2020-12-03 06:36] VITALS: BP 101/60; PULSE 84
[2020-12-03] MEDS: hydrOXYzine PAMOATE 25 MG CAPSULE (FP) PO SCH ×2 (07:12→09:21)
[2020-12-03] MEDS: PRENATAL VITAMINS W/ FOLIC ACID TABLET (FP) PO SCH (09:22)
[2020-12-03] MEDS: NICOTINE 14 MG/24 HOURS TOPICAL PATCH TD SCH (09:22)
[2020-12-03] MEDS ORDERED: METHADONE HCL 10 MG TABLET (FOR DETOX USE ONLY) PO ONE (10:00)
[2020-12-04] MEDS ORDERED: chlordiazePOXIDE HCL 10 MG CAPSULE PO ONE (05:00)
[2020-12-04] MEDS ORDERED: METHADONE HCL 5 MG TABLET (FOR DETOX USE ONLY) PO ONE (06:00)
[2020-12-04] MEDS ORDERED: diazePAM 5 MG TABLET PO ONE (06:00)
== END 2020-12-03 09:46 | disposition home or self-care (01) | DRG 773 ==
LOC: YASAS 08:51 → Y6N 09:56
PROVIDERS: ADMIT Allergy & Immunology; ATTEND Allergy & Immunology
PROC: HZ2ZZZZ Detoxification Services for Substance Abuse Treatment (ICD-10-PCS; principal; 2020-11-29)
DX: F11.23 Opioid dependence with withdrawal (principal); F10.230 Alcohol dependence with withdrawal, uncomplicated; F17.210 Nicotine dependence, cigarettes, uncomplicated; F19.280 Other psychoactive substance dependence with psychoactive substance-induced anxiety disorder; F19.282 Other psychoactive substance dependence with psychoactive substance-induced sleep disorder; F19.24 Other psychoactive substance dependence with psychoactive substance-induced mood disorder; G47.00 Insomnia, unspecified; J45.20 Mild intermittent asthma, uncomplicated; E80.6 Other disorders of bilirubin metabolism; R73.9 Hyperglycemia, unspecified; R74.8 Abnormal levels of other serum enzymes; R63.4 Abnormal weight loss; Z68.22 Body mass index [BMI] 22.0-22.9, adult
CPT/HCPCS: 36415; 80053; 82947; 85025; 85027; 86780; 93005; 93010; C9803; J0735; U0003

== ENCOUNTER 2023-09-12 17:46 | Inpatient (IN) | payer OTHER ==
[2023-09-12 18:35] VITALS: BMI 20.3
[2023-09-12] MEDS ORDERED: NALOXONE HCL 0.4 MG/ML VIAL IM PRN (19:04)
[2023-09-12] MEDS ORDERED: POLYETHYLENE GLYCOL (HEALTHYLAX) 3350 17 GM PACKET PO PRN (19:04)
[2023-09-12] MEDS ORDERED: MAG HYDROX/AL HYDROX/SIMETH 30 ML UNIT-DOSE CUP PO PRN (19:04)
[2023-09-12] MEDS ORDERED: ACETAMINOPHEN 325 MG TABLET (FP) PO PRN (19:04)
[2023-09-12] MEDS ORDERED: ONDANSETRON *ODT* 4 MG TABLET SL PRN (19:04)
[2023-09-12] MEDS ORDERED: MAGNESIUM HYDROX 2400MG/30ML ORAL SUSPENSION 30 ML CUP PO PRN (19:04)
[2023-09-12] MEDS ORDERED: BENZONATATE 200 MG CAPSULE PO PRN (19:04)
[2023-09-12] MEDS ORDERED: hydrOXYzine PAMOATE 25 MG CAPSULE (FP) PO PRN (19:04)
[2023-09-12] MEDS ORDERED: DICYCLOMINE HCL 10 MG CAPSULE PO PRN (19:04)
[2023-09-12] MEDS ORDERED: IBUPROFEN 400 MG TABLET (FP) PO PRN (19:04)
[2023-09-12] MEDS ORDERED: NALOXONE HCL (KLOXXADO) 8 MG SPRAY NS PRN (19:04)
[2023-09-12] MEDS ORDERED: BISMUTH SUBSALICYLATE 524 MG/30 ML PO PRN (19:04)
[2023-09-12] MEDS ORDERED: NICOTINE POLACRILEX 4 MG GUM BUC PRN (19:04)
[2023-09-12] MEDS ORDERED: BENZOCAINE/MENTHOL (CHLORASEPTIC ) LOZENGE MM PRN (19:04)
[2023-09-12] MEDS ORDERED: LOPERAMIDE HCL 2 MG CAPSULE PO PRN (19:04)
[2023-09-12] MEDS ORDERED: IBUPROFEN 600 MG TABLET (FP) PO PRN (19:04)
[2023-09-12] MEDS ORDERED: guaiFENesin 600 MG TABLET.ER (FP) PO PRN (19:04)
[2023-09-12] MEDS: METHOCARBAMOL 500 MG TABLET PO PRN (20:31)
[2023-09-12] MEDS ORDERED: MELATONIN 5 MG TABLETS PO SCH (22:00)
[2023-09-12] MEDS ORDERED: THIAMINE HCL 100 MG TABLET (FP) PO SCH (22:00)
[2023-09-13] MEDS: METHOCARBAMOL 500 MG TABLET PO PRN (05:29)
[2023-09-13] MEDS ORDERED: ALBUTEROL SO4 HFA INHALER IH PRN (07:29)
[2023-09-13 09:40] VITALS: RESP 16
[2023-09-13] MEDS ORDERED: NICOTINE 14 MG/24 HOURS TOPICAL PATCH TD SCH (10:00)
[2023-09-13] MEDS ORDERED: PRENATAL VITAMINS W/ FOLIC ACID TABLET (FP) PO SCH (10:00)
[2023-09-13] MEDS ORDERED: diazePAM 5 MG TABLET PO PRN (10:31)
[2023-09-13] MEDS ORDERED: cloNIDine HCL 0.1 MG TABLET PO PRN (10:31)
[2023-09-13] MEDS ORDERED: methaDONE HCL 10 MG TABLET (FOR DETOX USE ONLY) PO ONE ×2 (10:31→11:45)
[2023-09-13 10:51] LABS: HEMATOCRIT 39.3 % (35.4-49); HEMOGLOBIN 13.2 GM/dL (11.7-16.9); MCH 26.3 pg (25.7-33.7); MCHC 33.7 g/dl (32.0-35.9); MEAN PLT VOLUME 7.8 fl (7.5-11.1); PLATELET COUNT 325 10^3/uL (134-434); RBC 5.04 M/mm3 (4.00-5.60); WHITE BLOOD COUNT 5.3 K/mm3 (4.0-10.0)
[2023-09-13 10:55] LABS: CHLORIDE 106 mmol/L (98-107); POTASSIUM 4.2 mmol/L (3.5-5.1); SODIUM 141 mmol/L (136-145)
[2023-09-13 11:00] LABS: ANION GAP 5 mmol/L (4-13); BLOOD UREA NITROGEN 17.2 mg/dL (7-18); CALCIUM 8.8 mg/dL (8.5-10.1); CO2 31 mmol/L (21-32); GLUCOSE,RANDOM 81 mg/dL (74-106)
[2023-09-13] MEDS ORDERED: diazePAM 5 MG TABLET PO SCH (11:00)
[2023-09-13 11:01] LABS: ALBUMIN 3.4 g/dl (3.4-5.0)
[2023-09-13 11:03] LABS: CREATININE 0.7 mg/dL (0.55-1.3); SGOT/AST 21 U/L (15-37); SGPT/ALT 36 U/L (13-61)
[2023-09-13 11:05] LABS: BILIRUBIN,TOTAL 0.4 mg/dL (0.2-1); TOT PROT 6.8 g/dl (6.4-8.2)
[2023-09-13 11:06] LABS: ALK PHOS 97 U/L (45-117)
[2023-09-13 18:51] VITALS: BP 115/76; PULSE 65; TEMP 98
[2023-09-13] MEDS ORDERED: SUVOREXANT 10 MG TABLET PO PRN (22:00)
[2023-09-15] MEDS ORDERED: diazePAM 5 MG TABLET PO SCH (06:00)
[2023-09-15] MEDS ORDERED: methaDONE HCL 10 MG TABLET (FOR DETOX USE ONLY) PO ONE (10:00)
[2023-09-16] MEDS ORDERED: diazePAM 5 MG TABLET PO SCH (06:00)
[2023-09-17] MEDS ORDERED: diazePAM 5 MG TABLET PO ONE (06:00)
[2023-09-17] MEDS ORDERED: methaDONE HCL 10 MG TABLET (FOR DETOX USE ONLY) PO ONE (10:00)
== END 2023-09-13 17:22 | disposition left against medical advice (07) | DRG 770 ==
LOC: YASAS 17:46 → Y3N 19:28
PROVIDERS: ADMIT Allergy & Immunology; ATTEND Surgery
PROC: HZ2ZZZZ Detoxification Services for Substance Abuse Treatment (ICD-10-PCS; principal; 2023-09-12)
DX: F11.23 Opioid dependence with withdrawal (principal); F10.230 Alcohol dependence with withdrawal, uncomplicated; F13.20 Sedative, hypnotic or anxiolytic dependence, uncomplicated; F17.210 Nicotine dependence, cigarettes, uncomplicated; F19.282 Other psychoactive substance dependence with psychoactive substance-induced sleep disorder; F19.24 Other psychoactive substance dependence with psychoactive substance-induced mood disorder; J45.20 Mild intermittent asthma, uncomplicated; Z86.69 Personal history of other diseases of the nervous system and sense organs; Z28.310 Unvaccinated for COVID-19; Z28.9 Immunization not carried out for unspecified reason
CPT/HCPCS: 36415; 80053; 80307; 85027; 86780; 87635; 93005; 93010

== ENCOUNTER 2023-10-08 16:51 | Inpatient (IN) | payer OTHER ==
[2023-10-08 17:05] VITALS: BMI 17.5
[2023-10-08] MEDS ORDERED: ALBUTEROL SO4 HFA INHALER IH PRN (17:21)
[2023-10-08] MEDS ORDERED: cloNIDine HCL 0.1 MG TABLET PO PRN (17:28)
[2023-10-08] MEDS ORDERED: methaDONE HCL 10 MG TABLET (FOR DETOX USE ONLY) PO ONE (17:28)
[2023-10-08] MEDS ORDERED: ONDANSETRON *ODT* 4 MG TABLET SL PRN (17:32)
[2023-10-08] MEDS ORDERED: LOPERAMIDE HCL 2 MG CAPSULE PO PRN (17:32)
[2023-10-08] MEDS ORDERED: DICYCLOMINE HCL 10 MG CAPSULE PO PRN (17:32)
[2023-10-08] MEDS ORDERED: NALOXONE HCL (KLOXXADO) 8 MG SPRAY NS PRN (17:32)
[2023-10-08] MEDS ORDERED: IBUPROFEN 600 MG TABLET (FP) PO PRN (17:32)
[2023-10-08] MEDS ORDERED: ACETAMINOPHEN 325 MG TABLET (FP) PO PRN (17:32)
[2023-10-08] MEDS ORDERED: BENZONATATE 200 MG CAPSULE PO PRN (17:32)
[2023-10-08] MEDS ORDERED: BENZOCAINE/MENTHOL (CHLORASEPTIC ) LOZENGE MM PRN (17:32)
[2023-10-08] MEDS ORDERED: MAG HYDROX/AL HYDROX/SIMETH 30 ML UNIT-DOSE CUP PO PRN (17:32)
[2023-10-08] MEDS ORDERED: P-EPHED 60MG/TRIPROLIDI 2.5MG TABLET PO PRN (17:32)
[2023-10-08] MEDS ORDERED: NALOXONE HCL 0.4 MG/ML VIAL IM PRN (17:32)
[2023-10-08] MEDS ORDERED: guaiFENesin 600 MG TABLET.ER (FP) PO PRN (17:32)
[2023-10-08] MEDS ORDERED: POLYETHYLENE GLYCOL (HEALTHYLAX) 3350 17 GM PACKET PO PRN (17:32)
[2023-10-08] MEDS ORDERED: IBUPROFEN 400 MG TABLET (FP) PO PRN (17:32)
[2023-10-08] MEDS ORDERED: BISMUTH SUBSALICYLATE 524 MG/30 ML PO PRN (17:32)
[2023-10-08] MEDS ORDERED: MAGNESIUM HYDROX 2400MG/30ML ORAL SUSPENSION 30 ML CUP PO PRN (17:32)
[2023-10-08] MEDS ORDERED: methaDONE HCL 10 MG TABLET (FOR DETOX USE ONLY) ONE (17:43)
[2023-10-08] MEDS ORDERED: diazePAM 5 MG TABLET ONE (17:44)
[2023-10-08] MEDS: diazePAM 5 MG TABLET PO SCH ×2 (17:50→22:09)
[2023-10-08] MEDS: MELATONIN 5 MG TABLETS PO SCH (22:09)
[2023-10-08] MEDS: THIAMINE HCL 100 MG TABLET (FP) PO SCH (22:09)
[2023-10-09] MEDS: diazePAM 5 MG TABLET PO SCH ×4 (05:46→22:12)
[2023-10-09] MEDS: METHOCARBAMOL 500 MG TABLET PO PRN ×2 (05:47→10:50)
[2023-10-09] MEDS: PRENATAL VITAMINS W/ FOLIC ACID TABLET (FP) PO SCH (10:18)
[2023-10-09] MEDS: diazePAM 5 MG TABLET PO PRN ×2 (13:01→19:43)
[2023-10-09] MEDS: THIAMINE HCL 100 MG TABLET (FP) PO SCH (22:09)
[2023-10-09] MEDS: hydrOXYzine PAMOATE 25 MG CAPSULE (FP) PO PRN (22:11)
[2023-10-09] MEDS: MELATONIN 5 MG TABLETS PO SCH (22:11)
[2023-10-10] MEDS: diazePAM 5 MG TABLET PO SCH ×3 (05:59→22:07)
[2023-10-10] MEDS: diazePAM 5 MG TABLET PO PRN ×3 (08:14→19:03)
[2023-10-10] MEDS ORDERED: methaDONE HCL 10 MG TABLET (FOR DETOX USE ONLY) PO ONE (10:00)
[2023-10-10] MEDS: PRENATAL VITAMINS W/ FOLIC ACID TABLET (FP) PO SCH (10:06)
[2023-10-10] MEDS: METHOCARBAMOL 500 MG TABLET PO PRN ×2 (10:06→22:10)
[2023-10-10] MEDS: hydrOXYzine PAMOATE 25 MG CAPSULE (FP) PO PRN (22:07)
[2023-10-10] MEDS: MELATONIN 5 MG TABLETS PO SCH (22:07)
[2023-10-10] MEDS: THIAMINE HCL 100 MG TABLET (FP) PO SCH (22:07)
[2023-10-11] MEDS: diazePAM 5 MG TABLET PO PRN ×3 (02:04→11:44)
[2023-10-11] MEDS ORDERED: diazePAM 5 MG TABLET PO SCH (06:00)
[2023-10-11 06:21] VITALS: RESP 16
[2023-10-11 08:50] VITALS: BP 129/83; PULSE 78; TEMP 97.6
[2023-10-11] MEDS: hydrOXYzine PAMOATE 25 MG CAPSULE (FP) PO PRN (10:24)
[2023-10-11] MEDS: METHOCARBAMOL 500 MG TABLET PO PRN (10:24)
[2023-10-11] MEDS: PRENATAL VITAMINS W/ FOLIC ACID TABLET (FP) PO SCH (10:24)
[2023-10-12] MEDS ORDERED: diazePAM 5 MG TABLET PO ONE (06:00)
[2023-10-12] MEDS ORDERED: methaDONE HCL 10 MG TABLET (FOR DETOX USE ONLY) PO ONE (10:00)
== END 2023-10-11 12:36 | disposition home or self-care (01) | DRG 773 ==
LOC: YASAS 16:51 → Y3N 17:54
PROVIDERS: ADMIT Allergy & Immunology; ATTEND Surgery
PROC: HZ2ZZZZ Detoxification Services for Substance Abuse Treatment (ICD-10-PCS; principal; 2023-10-08)
DX: F11.23 Opioid dependence with withdrawal (principal); F10.20 Alcohol dependence, uncomplicated; F13.20 Sedative, hypnotic or anxiolytic dependence, uncomplicated; F14.20 Cocaine dependence, uncomplicated; F17.210 Nicotine dependence, cigarettes, uncomplicated; F19.282 Other psychoactive substance dependence with psychoactive substance-induced sleep disorder; F19.280 Other psychoactive substance dependence with psychoactive substance-induced anxiety disorder; F19.24 Other psychoactive substance dependence with psychoactive substance-induced mood disorder; J45.20 Mild intermittent asthma, uncomplicated; Z28.310 Unvaccinated for COVID-19; Z28.9 Immunization not carried out for unspecified reason
CPT/HCPCS: 87635